=== PATIENT | female | born 1975 | race African-American/Black ===

== ENCOUNTER 2019-09-13 17:12 | Inpatient (IN) | payer OTHER ==
[~2019-09-13] VITALS: Ht 172.7 cm; Wt 60.8 kg
--- NOTE | 2019-09-13 17:27 | NUR ---
at bedside to see and examine patient
[2019-09-13 18:01] LABS: CREATININE 0.8 mg/dL (0.6-1.3); POTASSIUM 3.9 mmol/L (3.5-5.1)
[2019-09-13 18:06] LABS: BILIRUBIN,DIRECT 0.1 mg/dL (0.0-0.2); BILIRUBIN,TOTAL 0.2 mg/dL (0.2-1.0); TOTAL PROTEIN, SERUM 7.6 g/dL (6.4-8.2)
[2019-09-13 18:10] LABS: BASOPHILS # (AUTO) 0.1 K/uL (0.0-8.0); BASOPHILS % (AUTO) 3.3 % (0.0-2.0); EOSINOPHILS # (AUTO) 0.1 K/uL (0.0-0.7); EOSINOPHILS % (AUTO) 1.7 % (0.0-7.0); LYMPHOCYTES # (AUTO) 1.3 K/uL (20.0-40.0); MEAN CORPUSCULAR HEMOGLOBIN 18.7 uug (24.7-32.8); MEAN CORPUSCULAR HGB CONC 28 g/dL (32.3-35.6); MEAN CORPUSCULAR VOLUME 66.4 fL (75.5-95.3); MONOCYTES # (AUTO) 0.4 K/uL (2.0-10.0); MONOCYTES % (AUTO) 9.5 % (0.0-11.0); NEUTROPHILS # (AUTO) 2.5 K/uL (1.8-8.9); NEUTROPHILS % (AUTO) 56.5 % (38.5-71.5); PLATELET COUNT (AUTO) 923 K/uL (179-408); RED BLOOD CELL COUNT(AUTO) 2.89 MIL/uL (3.63-4.92); WHITE BLOOD COUNT (AUTO) 4.5 K/uL (3.8-11.8)
[2019-09-13 18:13] LABS: HEMOGLOBIN 5.4 g/dL (10.9-14.3)
[2019-09-13 18:14] LABS: HEMATOCRIT 19.2 % (31.2-41.9)
--- NOTE | 2019-09-13 18:14 | NUR ---
Critical H&H of 5.4, hct of 19.2 platelets of [address] Shen.
--- NOTE | 2019-09-13 18:17 | NUR ---
HR of 76, 100% sat on RA, 123/69.
--- NOTE | 2019-09-13 18:30 | NUR ---
Blood consent obtained after Dr. Shen spoke with patient about the need for blood transfusion.
--- NOTE | 2019-09-13 18:53 | NUR ---
a call from [employer] [facility]. and report given.
--- NOTE | 2019-09-13 18:57 | NUR ---
A call to [facility] for to report /admission. Awaiting call back.
--- NOTE | 2019-09-13 19:13 | NUR ---
report given to incoming rn.
[2019-09-13 19:17] LABS: EOSINOPHILS % (MANUAL) 3 % (0-8); LYMPHOCYTES % (MANUAL) 30 % (20-40); MONOCYTES % (MANUAL) 8 % (2-10); NEUTROPHILS % (MANUAL) 59 % (42-75)
--- NOTE | 2019-09-13 19:25 | NUR ---
[facility] ON THE PHONE WITH [facility] ANEMIA PT WILL BE ADMITTED TO [facility] RM [id number] PENDING CALL BLOOD BANK
--- NOTE | 2019-09-13 19:43 | NUR ---
HAND OFF AND SBAR GIVEN TO RASHAD SILVA PT TRANSPORTED VIA [facility] BY [facility] UP BED AT LOWEST POSITION G20 TO R AC INTACT [facility] ENDORSED
[2019-09-13] MEDS ORDERED: HYDROCODONE/APAP 5-325MG TABLET PO PRN (20:00)
[2019-09-13] MEDS ORDERED: MAGNESIUM HYDROXIDE 30 ML LIQUID UDC PO PRN (20:00)
[2019-09-13] MEDS ORDERED: Z GUARD REMEDY PASTE 57 GM TUBE TOP PRN (20:00)
[2019-09-13] MEDS ORDERED: ACETAMINOPHEN 325 MG TABLET PO PRN (20:00)
[2019-09-13] MEDS ORDERED: ZOLPIDEM 5 MG TABLET PO PRN (20:00)
[2019-09-13] MEDS ORDERED: ONDANSETRON 4 MG/2 ML VIAL IV PRN (20:00)
[2019-09-13 20:19] VITALS: BP 140/85
[2019-09-14] VITALS (13 sets, daily range): BP systolic 118–140; BP diastolic 76–90
--- NOTE | 2019-09-14 04:09 | NUR ---
First unit of PRBC was transfused, no reactions noted, BP is trending up slightly from 118/80 to 139/85 on completion. Patient reporting feeling less faint and more coherent.
--- NOTE | 2019-09-14 07:50 | NUR ---
Patient calm can comfortable laying in bed ; patient finishing blood transfusion. Call light with in reach.
--- NOTE | 2019-09-14 07:55 | NUR ---
PATIENT HAS COMPLETED A SECOND UNIT OF PRBC. NO REACTION OR ADVERSE EFFECTS WERE NOTED. BP IS 140/90, SLEEPING COMFORTABLE, ENDORSED TO DAY SHIFT RN.
[2019-09-14 09:31] LABS: CREATININE 0.7 mg/dL (0.6-1.3); MAGNESIUM 1.8 mg/dL (1.8-2.4); PHOSPHOROUS 3.6 mg/dL (2.5-4.9); POTASSIUM 4.1 mmol/L (3.5-5.1)
[2019-09-14 09:39] LABS: BASOPHILS # (AUTO) 0.1 K/uL (0.0-8.0); BASOPHILS % (AUTO) 2.3 % (0.0-2.0); EOSINOPHILS # (AUTO) 0.1 K/uL (0.0-0.7); EOSINOPHILS % (AUTO) 2.1 % (0.0-7.0); HEMATOCRIT 29.1 % (31.2-41.9); HEMOGLOBIN 8.7 g/dL (10.9-14.3); LYMPHOCYTES # (AUTO) 1.5 K/uL (20.0-40.0); LYMPHOCYTES % (AUTO) 24.8 % (20.5-51.5); MEAN CORPUSCULAR HGB CONC 30 g/dL (32.3-35.6); MEAN CORPUSCULAR VOLUME 70.5 fL (75.5-95.3); MONOCYTES # (AUTO) 0.5 K/uL (2.0-10.0); MONOCYTES % (AUTO) 8.6 % (0.0-11.0); NEUTROPHILS # (AUTO) 3.7 K/uL (1.8-8.9); NEUTROPHILS % (AUTO) 62.2 % (38.5-71.5); PLATELET COUNT (AUTO) 831 K/uL (179-408); RED BLOOD CELL COUNT(AUTO) 4.13 MIL/uL (3.63-4.92)
[2019-09-14] MEDS ORDERED: FERR325T28 PO (10:01)
--- NOTE | 2019-09-14 12:30 | NUR ---
Patient discharged home in stable condition; patient with stable vital signs. Patient given discharge instructions and education on diagnosis and to follow up with PCP and hematology. Patient verbalized understanding. Patient left in car with friend.
[2019-09-14 12:45] LABS: EOSINOPHILS % (MANUAL) 2 % (0-8); LYMPHOCYTES % (MANUAL) 21 % (20-40); MONOCYTES % (MANUAL) 7 % (2-10); NEUTROPHILS % (MANUAL) 70 % (42-75)
[2019-09-14] MEDS ORDERED: SOD FERRIC GLUC COMPLX/SUCROSE 125 MG in IV NORMAL SALINE 100 ML IV SCH (14:00)
== END 2019-09-14 12:30 | disposition home or self-care (01) | DRG 663 ==
LOC: ER 17:12 → MEDSURG3 19:28
PROVIDERS: ADMIT Hospitalist; ATTEND Hospitalist
PROC: 30233N1 Transfusion of Nonautologous Red Blood Cells into Peripheral Vein, Percutaneous Approach (ICD-10-PCS; principal; 2019-09-14)
DX: D62 Acute posthemorrhagic anemia (principal); D25.9 Leiomyoma of uterus, unspecified
CPT/HCPCS: 36415; 70030-TC; 83735; 84100; 85025; 85730; 86850; 86870; 86880; 86900; 86901; 86920; 93005; A4663; G0378; J2916; J3490; J7040; P9016-BL; P9021

== ENCOUNTER 2019-10-17 13:32 | Emergency (ER) | payer OTHER ==
[~2019-10-17] VITALS: Ht 175.3 cm; Wt 63.5 kg
[~2019-10-17 13:32] MED LIST: FERR325T28 PO
[2019-10-17 15:00] LABS: *BILIRUBIN,URIN NEGATIVE (NEGATIVE); *CLARITY,URINE CLEAR (CLEAR); *COLOR,URINE YELLOW (YELLOW); *KETONES,URINE NEGATIVE (NEGATIVE); *URINE HCG, QUAL NEGATIVE (NEGATIVE); *UROBILINOGEN,URINE 0.2 E.U./dl (NORMAL); LEUKOCYTE ESTERASE ,URINE NEGATIVE (NEGATIVE); NITRITE, URINE NEGATIVE (NEGATIVE); UGLUCOSE NEGATIVE (NEGATIVE)
[2019-10-17 15:05] LABS: *BLOOD, URINE TRACE (NEGATIVE); SQUAMOUS EPITHELIAL CELL,UR MODERATE /HPF (NONE SEEN); WBC,URINE 0-3 /HPF (0-3)
--- NOTE | 2019-10-17 16:07 | NUR ---
Copies of all diagnostic tests' results given to patient. Patient discharged to home in stable conditon & brisk steady gait. Written and verbal after care instructions given to patient. Patient verbalizes understanding & compliance of instructions.
== END 2019-10-17 16:09 | disposition home or self-care (01) ==
LOC: ER 13:33
DX: D25.9 Leiomyoma of uterus, unspecified (principal); F32.9 Major depressive disorder, single episode, unspecified; Z88.0 Allergy status to penicillin; Z88.1 Allergy status to other antibiotic agents; Z79.899 Other long term (current) drug therapy
CPT/HCPCS: 76856; 84703; A4663